=== PATIENT | female | born 1955 | race Caucasian/White ===

== ENCOUNTER 2016-07-11 13:27 | Emergency (ER) | payer BC, OTHER ==
[2016-07-11 13:36] VITALS: BP 152/87; PULSE 92; RESP 16; TEMP 98.2; O2SAT 97
[2016-07-11] MEDS ORDERED: BENZOCAINE UNIT DOSE SPRAY HURRICAINE MM ONE (15:06)
--- NOTE | 2016-07-11 15:06 | UCPHY ---
H & P Patient Type: New Chief Complaint Nursing Narrative: GUM SWELLING THAT IS INCREASING HPI/ROS: CHIEF COMPLAINT: Dental pain, possible abscess HISTORY OF PRESENT ILLNESS: 3 days history of swelling and pain over the right lower bicuspid. This is gradual onset. Constant duration. She took a picture of, and sent to her dentist. They suggested that she come here to be seen for treatment and recommended amoxicillin. No fever or chills. No odynophagia or dysphagia. No pharyngitis. Minimal improvement with [id number] medications. No other associated complaints or modifying factors. REVIEW OF SYSTEMS: Ten systems reviewed and are negative unless otherwise noted in the HPI PERTINENT MEDICAL HISTORY: EXAMINATION General Appearance: Alert, no distress Head: normocephalic, atraumatic Eyes: Pupils equal and round, no conjunctival pallor or injection ENT, Mouth: Mucous membranes moist. No trismus. There is palpable fluctuance between teeth #27-28. Minimal surrounding erythema. No abnormality of the floor of mouth. Airway is widely patent. Neck: Normal inspection, supple, non-tender Cardiovascular: Regular rate and rhythm Skin: Warm and dry, no rash Extremities: Nontender, no pedal edema Psychiatric: Mood and affect normal DIFFERENTIAL DIAGNOSES: Including but not limited to pulpitis, dental abscess, mucositis, dental duran MDM: 3:03 p.m. Dental abscess of 3 days. She has no fever or chills. No evidence of facial cellulitis. No evidence of Alejandro's. No abnormality of the posterior pharynx. I will anesthetize and incise and drain the abscess. Offer her a prescription for Augmentin and she will follow up with her 3:30 p.m. PROCEDURE: Incision and Drainage Indication: Dental abscess Consent: Verbal Location: Between teeth 27-28 Complexity: Simple Anesthesia: Local, topical Hurricaine spray Procedure description: After anesthesia, 11 blade was used to incise. There is a 2-3 cc return of purulent fluid. No bleeding. Tolerated well. Expressed: 2-3 miles, purulent Wound care: As discussed and instructed by dentist Follow-up: With dentist on Wednesday 3:35 p.m. Dental abscess that has been incised and drained. Good return. Tolerated the procedure well. Discharged home with Augmentin twice daily. Follow-up with her dentist on Wednesday as scheduled. Return to the ER or Urgent Care for worsening symptoms, trismus, fever chills. SUPERVISION: This patient was independently evaluated without direct examination by the attending physician. Case was discussed with attending physician. Source: Patient Exam Limitations: No limitations - Personal History Current Tetanus Diphtheria and Acellular Pertussis (TDAP): Unsure - Medical/Surgical History Hx Asthma: No Hx Chronic Respiratory Disease: No Hx Diabetes: No Hx Cardiac Disease: No Hx Renal Disease: No Hx Cirrhosis: No Hx Alcoholism: No Hx HIV/AIDS: No Hx Splenectomy or Spleen Trauma: No Other PMH: BILATERAL MASTECTOMY, BREAST CANCER - Family History Significant Family History: No pertinent family hx - Social History Smoking Status: Never smoked Constitutional: Initial Vital Signs Temperature (C) 98.2 F 07/11/16 13:32 Heart Rate 92 07/11/16 13:32 Respiratory Rate 16 07/11/16 13:32 Blood Pressure 152/87 H 07/11/16 13:32 O2 Sat (%) 97 07/11/16 13:32 O2 Delivery Mode Room Air Allergies/Adverse Reactions: No Known Allergies Allergy (Unverified 07/11/16 13:36) Home Medications: Medication Instructions Recorded Amlodipine Besylate 07/11/16 Amoxicillin/Clavulanate Pot 875 mg PO BID #20 tab 07/11/16 [Augmentin 875 MG TAB (*)] Departure - Departure Disposition: Home, Routine, Self-Care Clinical Impression: Dental abscess Condition: Good Instructions: Dental Abscess (ED) Additional Instructions: Antibiotics 3 times daily. Continue the instructions from your dentist. Follow up with him on Wednesday. Return to the ER or Urgent Care for worsening symptoms, fever chills Referrals: LIZZY WORRELL [Other] - As per Instructions Prescriptions: Amoxicillin/Clavulanate Pot [Augmentin 875 MG TAB (*)] 875 mg PO BID #20 tab - PQRS PQRS Measurement: Not applicable
== END 2016-07-11 15:24 | disposition home or self-care (01) ==
LOC: CED 13:27
PROC: 0C96XZZ Drainage of Lower Gingiva, External Approach (ICD-10-PCS; principal; 2016-07-11)
DX: K04.7 Periapical abscess without sinus (principal)
CPT/HCPCS: 99204-PO; G0463-PO